=== PATIENT | male | born 1970 | race Two or more races ===

== ENCOUNTER 2022-08-02 09:43 | Emergency (ER) | payer OTHER ==
[~2022-08-02] VITALS: Ht 182.9 cm; Wt 116.1 kg
== END 2022-08-02 17:37 | disposition home or self-care (01) ==
LOC: ER 09:43
DX: N39.0 Urinary tract infection, site not specified (principal); R10.30 Lower abdominal pain, unspecified; R50.9 Fever, unspecified
CPT/HCPCS: 36415; 74177; Q9965

== ENCOUNTER 2022-08-04 09:34 | Emergency (ER) | payer OTHER ==
[~2022-08-04] VITALS: Ht 182.9 cm; Wt 116.1 kg
[2022-08-04] MEDS ORDERED: NORFLEX100MG PO (12:00)
[2022-08-04] MEDS ORDERED: KETO10TA2 PO (12:00)
== END 2022-08-04 12:15 | disposition home or self-care (01) ==
LOC: EMR PED 09:34 → ER 09:36 → EMR PED 09:36 → ER 12:15
DX: M25.511 Pain in right shoulder (principal)

== ENCOUNTER 2022-08-16 18:05 | Emergency (ER) | payer OTHER ==
[~2022-08-16] VITALS: Ht 182.9 cm; Wt 105.2 kg
[~2022-08-16 18:05] MED LIST: KETO10TA2 PO; NORFLEX100MG PO
== END 2022-08-16 19:49 | disposition home or self-care (01) ==
LOC: ER 18:05
DX: M54.9 Dorsalgia, unspecified (principal); M54.2 Cervicalgia

== ENCOUNTER 2022-08-17 13:02 | Outpatient (CLI) | payer OTHER | END 2022-08-17 13:14 | disposition home or self-care (01) | LOC: MRI 13:02 | PROVIDERS: ATTEND Emergency Medicine Hospice and Palliative Medicine | DX: M54.40 Lumbago with sciatica, unspecified side (principal); M54.2 Cervicalgia; M54.6 Pain in thoracic spine | CPT/HCPCS: 72141; 72146; 72148 ==

== ENCOUNTER 2022-09-23 15:36 | Emergency (ER) | payer OTHER ==
[~2022-09-23] VITALS: Ht 162.6 cm; Wt 116.1 kg
== END 2022-09-23 17:43 | disposition home or self-care (01) ==
LOC: ER 15:36
DX: M54.16 Radiculopathy, lumbar region (principal)

== ENCOUNTER 2022-10-04 10:01 | Emergency (ER) | payer OTHER ==
[~2022-10-04] VITALS: Ht 182.9 cm; Wt 103.0 kg
[2022-10-04] MEDS ORDERED: VOLTAREN ARTHRI20 GM (10:36)
[2022-10-04] MEDS ORDERED: NEURONTIN300 MG PO (10:37)
== END 2022-10-04 15:37 | disposition home or self-care (01) ==
LOC: ER 10:01
DX: R60.0 Localized edema (principal); M54.9 Dorsalgia, unspecified

== ENCOUNTER 2022-10-06 21:43 | Emergency (ER) | payer OTHER ==
[~2022-10-06] VITALS: Ht 182.9 cm; Wt 107.5 kg
[~2022-10-06 21:43] MED LIST changes: +NEURONTIN300 MG PO; +VOLTAREN ARTHRI20 GM
[2022-10-07] MEDS ORDERED: LASIX20 MG PO (17:38)
== END 2022-10-07 07:20 | disposition home or self-care (01) ==
LOC: ER 21:43
DX: M54.50 Low back pain, unspecified (principal); R60.0 Localized edema; I10 Essential (primary) hypertension

== ENCOUNTER 2022-10-07 09:11 | Emergency (ER) | payer OTHER ==
[~2022-10-07] VITALS: Ht 167.6 cm; Wt 107.5 kg
[2022-10-07] MEDS ORDERED: LASIX20 MG PO (17:38)
== END 2022-10-07 17:50 | disposition home or self-care (01) ==
LOC: ER 09:11
DX: R60.0 Localized edema (principal)